=== PATIENT | male | born 1965 | race African-American/Black ===

== ENCOUNTER 2021-09-12 12:01 | Day surgery (SDC) | payer OTHER ==
[~2021-09-12] VITALS: Ht 188 cm; Wt 121.8 kg
[~2021-09-12 12:01] MED LIST: BACTRIM DS TAB1 EACH PO; CEFTIN250 MG PO; MIRALAX17 GM PO; NORCO 10-325 T1 EACH PO; NORCO 7.5-3251 EACH PO; OTC SUPPLEMENTS; OXECTA7.5 MG PO; XARELTO10 MG PO
--- NOTE | 2021-09-12 14:00 | NUR ---
09/12/21 1400 Sheets,[place] 1352 PT ARRIVED TO PACU ON RA AND VSS. 1357 PT WAKES TO TACTILE STIMULI AND MD AT BEDSIDE TALKING TO PT. PT REORIENTED TO PACU. PT ROLLS TO BACK AND EASILY FALLS BACK TO SLEEP.
--- NOTE | 2021-09-13 12:26 | OR ---
[facility] [address] [place], [place] [address] Signed DATE OF OPERATION: 09/12/2021 SURGEON: Mckayla Ortiz MD PREOPERATIVE DIAGNOSIS: Family history of colon cancer (mother). POSTOPERATIVE DIAGNOSIS: Small sessile polyp at 40 cm (excised). PROCEDURE: Total colonoscopy of the cecum with cold snare polypectomy x1. ANESTHESIA: Intravenous sedation, fentanyl 100 mcg and Versed 6 mg. INDICATIONS: This 55-year-old black man is a patient of Dr. Maryjane Armstrong and has family history of colon cancer in his mother at age 72. He currently has no symptoms of bleeding diarrhea or constipation. He has undergone colonoscopy in 2012, which was said to be normal. He is admitted at this time to undergo colonoscopy on the basis of his family history understanding the risks of bleeding, infection, and perforation. FINDINGS: The prep was adequate with irrigation, but required a fair amount of irrigation at least in the cecum and right colon. Adequate visualization was ultimately noted. There was a small sessile polyp of 5 mm size in the left colon at 40 cm which was excised completely with cold snare technique. The remaining colon was otherwise normal. DESCRIPTION OF PROCEDURE: The patient was brought to the endoscopy suite and placed in lateral decubitus position given intravenous sedation points slurred speech and nystagmus with full cardiopulmonary monitoring. Digital rectal examination showed no abnormality. An Olympus video colonoscope was passed in the rectum and manipulated throughout the colon. There was some semi-formed stool in the sigmoid and left colon requiring irrigation, but the scope was passed beyond this to a relatively clear colon up into the cecum proper, which again had some semi formed stool. A fair amount of irrigation was undertaken to adequately visualize mucosal areas for gross lesions, but there was never complete clearance of the cecum itself. Photographs were taken. The scope was Electronically Signed By: MCKAYLA ORTIZ MD 09/13/21 1226 PATIENT NAME: FLORENCIO DAVEY OPERATIVE REPORT DATE OF : 65 REPORT #: [id number] PHYSICIAN: MCKAYLA ORTIZ MD PCP: MARYJANE ARMSTRONG MD REPORT IS CONFIDENTIAL AND NOT TO BE RELEASED WITHOUT AUTHORIZATION [facility] [address] [place], [place] [address] Signed withdrawn from that point. Careful withdrawal of scope with irrigation as necessary was undertaken. There were no abnormalities until approximately 40 cm from the anal verge, where a small sessile polyp was noted. This was excised with cold snare technique. The specimen was passed for pathology further withdrawal showed no other abnormalities. The rectum was normal. Scope was removed. The patient was taken to the recovery room in good condition. CONCLUDING DIAGNOSIS: Polyps x1. PLAN: Recommend repeat colonoscopy in 5 years based on family history of colon cancer in his mother. We will recommend colonoscopy sooner if symptoms should develop. He will return to the ongoing care of Dr. Maryjane Armstrong. MD MARLEE Ugalde/TANISHA /[id number] cc: Maryjane Armstrong MD Copies: MARYJANE ARMSTRONG MD ~ Electronically Signed By: MCKAYLA ORTIZ MD 09/13/21 1226 PATIENT NAME: FLORENCIO DAVEY OPERATIVE REPORT DATE OF : 65 REPORT #: [id number] PHYSICIAN: MCKAYLA ORTIZ MD PCP: MARYJANE ARMSTRONG MD REPORT IS CONFIDENTIAL AND NOT TO BE RELEASED WITHOUT AUTHORIZATION
--- NOTE | 2021-09-14 13:29 | PATH ---
[facility] [address] [place], [place] [address] Signed SPECIMEN(S): A COLON POLYP AT 40 CM SPECIMEN SOURCE: A. COLON POLYP AT 40 CM CLINICAL HISTORY: Family history of colon cancer FINAL PATHOLOGIC DIAGNOSIS: Colon, polyp at 40 cm, polypectomy: - Tubular adenoma. - Negative for high-grade dysplasia or malignancy. NAL:cml:C2NR MICROSCOPIC EXAMINATION: Histologic sections of all submitted blocks are examined by light microscopy. These findings, together with the gross examination, support the pathologic diagnosis. GROSS DESCRIPTION: The specimen, labeled "DM," and designated on the requisition "colon, polypectomy, 40 cm," is received in formalin and consists of two ellington soft tissue fragments that measure 0.2 up 0.3 cm in greatest dimension. The specimen is entirely submitted in cassette (A1). AI (under the direct supervision of a pathologist) The Gross Description was prepared using a voice recognition system. The report was reviewed for accuracy; however, sound-alike word errors, addition and/or deletions may occur. If there is any question about this report, please contact Client Services. PERFORMING LABORATORY: The technical component was performed by [facility], [address] [place] [id number] (CLIA# [id number]). Professional interpretation was performed by [facility], [facility], [address] [address] (CLIA# [id number]). Diagnostician: Katerina Martel MD Pathologist Electronically Signed 09/14/2021 PATIENT NAME: FLORENCIO DAVEY PATHOLOGY DATE OF : 65 REPORT #: [id number] PHYSICIAN: [facility] PCP: MARYJANE STOREY MD REPORT IS CONFIDENTIAL AND NOT TO BE RELEASED WITHOUT AUTHORIZATION [address] [address] Signed Copies: ~ PATIENT NAME: FLORENCIO DAVEY PATHOLOGY DATE OF : 65 REPORT #: [id number] PHYSICIAN: [facility] PCP: MARYJANE STOREY MD REPORT IS CONFIDENTIAL AND NOT TO BE RELEASED WITHOUT AUTHORIZATION
== END 2021-09-12 14:32 | disposition home or self-care (01) ==
LOC: OPS 12:01 → DS 12:07 → OPS 13:00 → DS 13:00 → OPS 14:32
PROVIDERS: ATTEND Surgery
PROC: 0DBH8ZX Excision of Cecum, Via Natural or Artificial Opening Endoscopic, Diagnostic (ICD-10-PCS; principal; 2021-09-12 13:00)
DX: Z12.11 Encounter for screening for malignant neoplasm of colon (principal); D12.6 Benign neoplasm of colon, unspecified; F17.290 Nicotine dependence, other tobacco product, uncomplicated; Z88.0 Allergy status to penicillin; Z96.651 Presence of right artificial knee joint; Z80.0 Family history of malignant neoplasm of digestive organs; Z72.89 Other problems related to lifestyle
CPT/HCPCS: 88305; 99153; G0500; J2250; J3010; J7121